=== PATIENT | female | born 1965 | race Caucasian/White ===

== ENCOUNTER 2024-01-17 08:36 | Day surgery (SDC) | payer OTHER ==
[2024-01-17] MEDS ORDERED: Decadron 4 MG INJ IV ONE (08:37)
[2024-01-17] MEDS ORDERED: Sodium Chloride 0.9(Preservative Free) 10 ML IJ ONE (08:37)
[2024-01-17] MEDS ORDERED: DIPRIVAN 200 MG/20 ML IV ONE (11:57)
[2024-01-17] MEDS ORDERED: Lactated Ringers 1,000 ML IV ONE (15:01)
--- NOTE | 2024-01-17 15:15 | XRAY ---
Indication: Right L4-S1 transforaminal JEFF. Intraoperative fluoroscopy provided for 31 seconds. 3 digital spot images submitted for interpretation demonstrates posterior needle tips projecting over the expected right L4 and L5 nerve roots. Small amount of contrast injected for needle tip placement. Correlate with intraoperative findings/report.
--- NOTE | 2024-01-17 15:20 | XRAY ---
31 seconds of fluoroscopy was used in surgery for a right L4-S1 transforaminal JEFF.
== END 2024-01-17 12:23 | disposition home or self-care (01) ==
LOC: SDC-PAIN 08:36
PROVIDERS: ATTEND Psychiatry & Neurology Pain Medicine
DX: M54.16 Radiculopathy, lumbar region (principal); E11.9 Type 2 diabetes mellitus without complications
CPT/HCPCS: 64483; 64484; 72100; 77003; 82947; J1100; J2704; Q9966